=== PATIENT | male | born 1945 | race Caucasian/White ===

== ENCOUNTER 2018-05-11 10:58 | Emergency (ER) | payer MEDICARE, BC ==
--- NOTE | 2018-05-11 11:34 | RAD ---
CHEST 1 VIEW: Date: 05/11/18 HISTORY: Syncope. FINDINGS: Heart size is within normal limits. There are postop sternotomy changes. Lungs are clear of any infil trative process. There appears to be some linear scarring in the right upper lobe. IMPRESSION: No active intrathoracic disease. POS: [facility]
[2018-05-11 11:56] LABS: ALT (SGPT) 17 U/L (8-55); AST (SGOT) 32 U/L (5-34); Albumin 3.8 g/dL (3.4-4.8); Alkaline Phosphatase 73 U/L (40-150); Anion Gap 15 mmol/L (10-20); BUN (Urea Nitrogen) 19 mg/dL (8.4-25.7); Bilirubin, Total 1.8 mg/dL (0.2-1.2); Calc. Creatinine Clearance 0 mL/min (70-130); Calcium 8.8 mg/dL (7.8-10.44); Carbon Dioxide 22 mmol/L (23-31); Chloride 107 mmol/L (98-107); Estimated GFR-MDRD 50; Glucose 98 mg/dL (83-110); Potassium 4.5 mmol/L (3.5-5.1); Protein, Total 6.8 g/dL (5.8-8.1); Sodium 139 mmol/L (136-145)
[2018-05-11] MEDS ORDERED: Acetaminophen 325 MG TAB ONE (11:59)
[2018-05-11 12:03] LABS: Anisocytosis SLIGHT = 6-15 cells (100X) (0-5/hpf); Hemoglobin 10.3 g/dL (14.0-18.0); Hypochromia MODERATE=16-30 cells (100X) (0-5/hpf); MDiff Complete? YES; Mean Corpuscular HGB CONC 29.4 g/dL (32.0-36.0); Mean Corpuscular Hemoglobin 21.3 pg (27.0-31.0); Mean Corpuscular Volume 72.5 fL (78.0-98.0); Mean Platelet Volume 5.8 fL (7.4-10.4); Microcytosis MODERATE=15-30 cells (100X) (0-5/hpf); Platelet Count 483 thou/uL (130-400); Platelet Morphology Comment Appears Increased; RBC Distribution Width 30.5 % (11.5-14.5); Red Blood Cell (RBC) Count 4.84 mill/uL (4.70-6.10); White Blood Cell (WBC) Count 5.4 thou/uL (4.8-10.8)
[2018-05-11] MEDS ORDERED: Sodium Chloride 0.9% 1,000 ML ONE ×2 (12:48→14:59)
[2018-05-11] MEDS ORDERED: cefTRIAXone\\ROCEPHIN 1 GM VIAL ONE (13:33)
[2018-05-11] MEDS ORDERED: Sodium Chloride 0.9% 100 ML ONE (13:34)
[2018-05-11 13:48] LABS: Bilirubin Small (Negative); Blood, Urine Negative (Negative); Glucose, Urine (Dipstick) Negative (Negative); Leukocyte Negative (Negative); Nitrite Negative (Negative); Protein, Urine (Dipstick) 30 mg/dL (Neg-Trace); pH, Urine 5.5 (5.0-9.0)
[2018-05-11 13:55] LABS: Specific Gravity, Urine 1.037 (1.002-1.036)
[2018-05-11 13:56] LABS: Bacteria/HPF 1+ HPF (None Seen); Clarity Hazy (Clear); RBC/HPF 0-3 HPF (0-3); WBC/HPF 0-3 HPF (0-3)
== END 2018-05-11 15:28 | disposition short-term general hospital (02) ==
LOC: MADERS 10:58
DX: E86.0 Dehydration (principal); R55 Syncope and collapse; B34.9 Viral infection, unspecified; Z79.899 Other long term (current) drug therapy
CPT/HCPCS: 36415; 71045; 80053; 81003; 81015; 83605; 83880; 84484; 85025; 87040; 87804; 93005; 96361; 96365; J0696; J7050

== ENCOUNTER 2019-04-23 10:04 | Emergency (ER) | payer BC, MEDICARE ==
[2019-04-23] MEDS ORDERED: Metoprolol Tartrate 5 MG/5 ML VIAL ONE ×2 (10:15→10:24)
--- NOTE | 2019-04-23 10:31 | RAD ---
Chest AP view INDICATION: Chest pain COMPARISON: May 11, 2018 FINDINGS: Lungs:The lungs are clear. Chronic lung changes are stable. Cardiac silhouette:Stable midline sternotomy changes and mild cardiomegaly Pulmonary vasculature:Normal Pleural spaces:No pleural effusion or pneumothorax is demonstrated. Upper abdomen:No abnormality seen. Osseous structures: No acute osseous abnormality. Additional findings:None. IMPRESSION: No acute cardiopulmonary abnormality.
[2019-04-23 10:34] LABS: Hemoglobin 9.8 g/dL (14.0-18.0); Mean Corpuscular HGB CONC 27.7 g/dL (32.0-36.0); Mean Corpuscular Hemoglobin 18.1 pg (27.0-31.0); Mean Corpuscular Volume 65.4 fL (78.0-98.0); Platelet Count 760 thou/uL (130-400); RBC Distribution Width 30.2 % (11.5-14.5); Red Blood Cell (RBC) Count 5.44 mill/uL (4.70-6.10); White Blood Cell (WBC) Count 8.9 thou/uL (4.8-10.8)
[2019-04-23 10:42] LABS: ALT (SGPT) 9 U/L (8-55); AST (SGOT) 18 U/L (5-34); Albumin 4.1 g/dL (3.4-4.8); Alkaline Phosphatase 89 U/L (40-110); Anion Gap 14 mmol/L (10-20); BUN (Urea Nitrogen) 18 mg/dL (8.4-25.7); Bilirubin, Total 1.7 mg/dL (0.2-1.2); Calc. Creatinine Clearance 0 mL/min (70-130); Calcium 9.2 mg/dL (7.8-10.44); Carbon Dioxide 21 mmol/L (23-31); Chloride 109 mmol/L (98-107); Estimated GFR-MDRD 47; Globulin 3.6 g/dL (2.4-3.5); Glucose 103 mg/dL (83-110); Potassium 4.1 mmol/L (3.5-5.1); Protein, Total 7.7 g/dL (5.8-8.1); Sodium 140 mmol/L (136-145)
[2019-04-23 10:51] LABS: Manual Diff?? YES
[2019-04-23 10:52] LABS: Anisocytosis SLIGHT = 6-15 cells (100X) (0-5/hpf); Eosinophils 14 % (0-10); Lymphocytes 47 % (21-51); MDiff Complete? YES; Monocytes 9 % (0-10); Neutrophil 29 % (42-75)
[2019-04-23 10:53] LABS: Platelet Morphology Comment Appears Increased
[2019-04-23 10:55] LABS: Hypochromia SLIGHT = 6-15 cells (100X) (0-5/hpf); Microcytosis MODERATE=15-30 cells (100X) (0-5/hpf); Poikilocytosis SLIGHT = 6-15 cells (100X) (0-5/hpf)
[2019-04-23] MEDS ORDERED: Metoprolol Tartrate 50 MG TAB ONE ×2 (10:59→11:02)
== END 2019-04-23 11:33 | disposition short-term general hospital (02) ==
LOC: MADERS 10:04
DX: I48.91 Unspecified atrial fibrillation (principal); D64.9 Anemia, unspecified; Z87.891 Personal history of nicotine dependence; Z79.899 Other long term (current) drug therapy; Z79.01 Long term (current) use of anticoagulants
CPT/HCPCS: 71045; 80053; 82274; 83605; 83880; 84484; 85025; 93005; 94760; 96374

== ENCOUNTER 2020-10-09 11:41 | Emergency (ER) | payer OTHER ==
[2020-10-09 12:21] LABS: Hemoglobin 8.2 g/dL (14.0-18.0); Mean Corpuscular HGB CONC 30.5 g/dL (32.0-36.0); Mean Corpuscular Hemoglobin 22.4 pg (27.0-31.0); Mean Corpuscular Volume 73.2 fL (78.0-98.0); Mean Platelet Volume 7.9 fL (7.4-10.4); Platelet Count 429 thou/uL (130-400); RBC Distribution Width 34.2 % (11.5-14.5); Red Blood Cell (RBC) Count 3.67 mill/uL (4.70-6.10); White Blood Cell (WBC) Count 131.7 thou/uL (4.8-10.8)
[2020-10-09 12:23] LABS: Manual Diff?? YES
[2020-10-09 12:26] LABS: ALT (SGPT) 33 U/L (8-55); AST (SGOT) 37 U/L (5-34); Albumin 3.4 g/dL (3.4-4.8); Alkaline Phosphatase 88 U/L (40-110); Anion Gap 14 mmol/L (10-20); BUN (Urea Nitrogen) 29 mg/dL (8.4-25.7); Bilirubin, Total 0.8 mg/dL (0.2-1.2); CK (CPK) 43 U/L (30-200); Calc. Creatinine Clearance 0 mL/min (70-130); Calcium 8.8 mg/dL (7.8-10.44); Carbon Dioxide 19 mmol/L (23-31); Chloride 110 mmol/L (98-107); Globulin 3.8 g/dL (2.4-3.5); Glucose 134 mg/dL (83-110); Potassium 3.6 mmol/L (3.5-5.1); Protein, Total 7.2 g/dL (5.8-8.1); Sodium 139 mmol/L (136-145)
[2020-10-09 12:27] LABS: CKMB 1.4 ng/mL (0-6.6)
[2020-10-09 13:06] LABS: Band 3 % (5-11); Eosinophils 3 % (0-10); Lymphocytes 15 % (21-51); MDiff Complete? YES; Monocytes 46 % (0-10); Neutrophil 23 % (42-75)
[2020-10-09 13:07] LABS: Anisocytosis SLIGHT = 6-15 cells (100X) (0-5/hpf); Platelet Morphology Comment Appears Adequate; Poikilocytosis SLIGHT = 6-15 cells (100X) (0-5/hpf)
[2020-10-09 13:08] LABS: Pappenheimer Bodies SLIGHT = 1-2 cells (100X) (None Seen)
[2020-10-09] MEDS ORDERED: cefTRIAXone\\ROCEPHIN 1 GM VIAL ONE (13:41)
== END 2020-10-09 14:04 | disposition home or self-care (01) ==
LOC: MADERS 11:41
DX: J18.9 Pneumonia, unspecified organism (principal); D64.9 Anemia, unspecified; D72.829 Elevated white blood cell count, unspecified; Z87.891 Personal history of nicotine dependence; Z79.899 Other long term (current) drug therapy
CPT/HCPCS: 71045; 80053; 82550; 82553; 83880; 84484; 85025; 85060; 85379; 86140; 87040; 93005; 94760; 96374; J0696